=== PATIENT | male | born 1980 | race Caucasian/White ===

== ENCOUNTER 2025-03-17 00:22 | Emergency (ER) | payer SELFPAY ==
[2025-03-17] MEDS ORDERED: Lidocaine 1% w/Epinephrine 1:100K 20 ML VIAL ONE (00:35)
[2025-03-17] MEDS ORDERED: Bacitracin 1 PK ONE (00:35)
[2025-03-17] MEDS ORDERED: Boostrix 0.5 ML (Tdap) VIAL (>/=7 yrs of age) ONE (00:35)
== END 2025-03-17 01:59 | disposition home or self-care (01) ==
LOC: MADERS 00:22
DX: S01.511A Laceration without foreign body of lip, initial encounter (principal); F17.290 Nicotine dependence, other tobacco product, uncomplicated; Z23 Encounter for immunization; Y04.2XXA Assault by strike against or bumped into by another person, initial encounter; Y93.72 Activity, wrestling
CPT/HCPCS: 12053; 90471; 90715